=== PATIENT | female | born 1945 | race Caucasian/White ===

== ENCOUNTER → 2020-12-05 | Day surgery (SDC) | payer MEDICARE ==
[~2020-12-05] VITALS: Ht 162.6 cm; Wt 64.9 kg
[~2020-12-05] MED LIST: ACETAMINOPHEN500 M1 PO; ATENOLOL-CHLOR1 EACH PO; ATORVASTATIN CA20 MG PO; LEVOTHYROXINE25 MCG PO; LISINOPRIL20 MG PO; MOTRIN600 MG PO; POTASSIUM CHLO20 ME2 PO; XYZAL5 MG PO
== END | disposition home or self-care (01) ==
LOC: FAS 10:57
DX: C20 Malignant neoplasm of rectum (principal); K21.9 Gastro-esophageal reflux disease without esophagitis; E03.9 Hypothyroidism, unspecified; F17.210 Nicotine dependence, cigarettes, uncomplicated; I10 Essential (primary) hypertension; Z79.899 Other long term (current) drug therapy; Z88.0 Allergy status to penicillin; Z88.3 Allergy status to other anti-infective agents
CPT/HCPCS: 88305; 88341; 88342; J2405; J2704; J7120

== ENCOUNTER → 2020-12-22 | Day surgery (SDC) | payer MEDICARE ==
[2020-12-22 07:51] LABS: BUN/CREAT RATIO (CALC) 37.3 RATIO; CREATININE 0.59 mg/dL (0.51-0.95); POTASSIUM 2.7 mmol/L (3.5-5.1)
== END | disposition home or self-care (01) ==
LOC: FAS 06:37
PROVIDERS: Student in an Organized Health Care Education/Training Program
DX: C78.5 Secondary malignant neoplasm of large intestine and rectum (principal); K21.9 Gastro-esophageal reflux disease without esophagitis; E03.9 Hypothyroidism, unspecified; I10 Essential (primary) hypertension; R19.7 Diarrhea, unspecified; F17.210 Nicotine dependence, cigarettes, uncomplicated; Z20.822 Contact with and (suspected) exposure to COVID-19; Z79.899 Other long term (current) drug therapy; Z88.0 Allergy status to penicillin; Z88.8 Allergy status to other drugs, medicaments and biological substances
CPT/HCPCS: 36415; 71045; 76000; 80048; C1788; J1644; J2001; J2704; J3010; J3370; J7050; J7120